=== PATIENT | female | born 1975 | race Caucasian/White ===

== ENCOUNTER 2019-12-15 16:24 | Emergency (ER) | payer BC ==
--- NOTE | 2019-12-15 16:53 | EDM.PDOC ---
Scribed by Chastity Rae 12/15/19 8538 for Luzmaria Lacey MD ED HPI GENERAL MEDICAL PROBLEM - General Chief Complaint: Laceration Stated Complaint: LEFT HAND CUT INBETWEEN POINTER AND MIDDLE FINGER, Time Seen by Provider: 12/15/19 16:40 Source of Information: Reports: Patient, RN, RN Notes Reviewed History Limitations: Reports: No Limitations - History of Present Illness INITIAL COMMENTS - FREE TEXT/NARRATIVE: Patient presents to ED for a cut on her left hand dorsal between second and third MCP approximately 5mm in length. She cut it while working around the house approximately 30 minutes prior to arrival. Unsure of last tetanus. No known numbness or tingling in the hand. Minimal bleeding. Onset: Today Duration: Constant Location: Reports: Upper Extremity, Left Quality: Reports: Ache Severity: Mild Improves with: Reports: None Worsens with: Reports: None Associated Symptoms: Reports: No Other Symptoms - Related Data Allergies Allergy/AdvReac Type Severity Reaction Status Date / Time amoxicillin Allergy Rash Verified 12/15/19 16:42 Home Meds: Home Meds Aspirin [Halfprin] 81 mg PO DAILY 12/15/19 [History] Fluticasone Propionate [Flonase] 1 spray NASBOTH DAILY 12/15/19 [History] Multivitamin [Multivitamins] 1 tab PO DAILY 12/15/19 [History] PARoxetine [Paxil] 10 mg PO DAILY 12/15/19 [History] ED ROS GENERAL - Review of Systems Review Of Systems: Comprehensive ROS is negative, except as noted in HPI. ED EXAM, SKIN/RASH Exam: See Below Exam Limited By: No Limitations General Appearance: Alert, WD/WN, No Apparent Distress Head: Atraumatic Neck: Normal Inspection Respiratory/Chest: No Respiratory Distress, Lungs Clear, Normal Breath Sounds, No Accessory Muscle Use Cardiovascular: Regular Rate, Rhythm Extremities: Other (5mm laceration between second and third MCP. ) Neurological: Alert, Oriented, Normal Cognition, Normal Gait Psychiatric: Normal Affect, Normal Mood Skin: Warm, Dry ED SKIN PROCEDURES - Laceration/Wound Repair Left Dorsal Hand Appearance: Subcutaneous Distal NVT: Neuro & Vascular Intact Skin Prep: Chlorhexidine (Hibiciens) Exploration/Debridement/Repair: Wound Explored, No Foreign Material Found Closed with: Dermabond Lac/Wound length In cm: 0.5 Course - Vital Signs Last Recorded V/S: Last Vital Signs Temp 97.7 F 12/15/19 16:35 Pulse 72 12/15/19 16:35 Resp 16 12/15/19 16:35 BP 135/83 12/15/19 16:35 Pulse Ox 98 12/15/19 16:35 Departure - Departure Time of Disposition: 16:50 Disposition: Home, Self-Care 01 Condition: Good Clinical Impression: Puncture wound - injury - Discharge Information *PRESCRIPTION DRUG MONITORING PROGRAM REVIEWED*: Not Applicable *COPY OF PRESCRIPTION DRUG MONITORING REPORT IN PATIENT ELIZABETH: Not Applicable Instructions: Sutures, [place], or Adhesive Wound Closure, [id number] Forms: ED Department Discharge Additional Instructions: follow up with PCP in 3-5 days check on tetanus status and update if needed Sepsis Event Note (ED) - Evaluation Sepsis Screening Result: No Definite Risk - Focused Exam Vital Signs: Vital Signs Temp Pulse Resp BP Pulse Ox 12/15/19 16:35 97.7 F 72 16 135/83 98 - Assessment/Plan Assessment:: 44 yo female with laceration to her left hand Plan: Dermabond in ER reviewed s/s of infection and reasons to call/return to the ER check on status of tetanus vaccine and update if needed fu with PCP in 3-5 days I have read and agree with the documentation that has been completed regarding this visit. By signing this record, I attest that the documentation was completed in my physical presence and is an accurate record of the encounter.
== END 2019-12-15 16:55 | disposition home or self-care (01) ==
LOC: DL.ED 16:24
DX: S61.432A Puncture wound without foreign body of left hand, initial encounter (principal); Z88.0 Allergy status to penicillin; Z79.82 Long term (current) use of aspirin; Z79.899 Other long term (current) drug therapy; W26.0XXA Contact with knife, initial encounter
CPT/HCPCS: 12001; 99282; 99282-25